=== PATIENT | female | born 1995 | race Caucasian/White ===

== ENCOUNTER 2017-04-14 13:36 | Emergency (ER) | payer MEDICAID ==
[~2017-04-14] VITALS: Ht 157.5 cm; Wt 49.0 kg
[~2017-04-14 13:36] MED LIST: LEVO150T PO
[2017-04-14 14:32] LABS: HEMATOCRIT 40.9 % (34.6-47.8); HEMOGLOBIN 13.7 g/dL (11.7-16.4); WHITE BLOOD COUNT 10.1 x10^3/uL (4.5-13.2)
[2017-04-14 14:43] LABS: BLOOD UREA NITROGEN 3 mg/dL (7-18)
[2017-04-14 15:53] VITALS: BP 123/73
== END 2017-04-14 15:54 | disposition home or self-care (01) ==
LOC: ED 14:03
DX: O20.0 Threatened abortion (principal); O23.11 Infections of bladder in pregnancy, first trimester; O99.281 Endocrine, nutritional and metabolic diseases complicating pregnancy, first trimester; E03.9 Hypothyroidism, unspecified; Z3A.12 12 weeks gestation of pregnancy
CPT/HCPCS: 36415; 76801; 80048; 81001; 82040; 84702; 85025; 86901; 87086; 99285

== ENCOUNTER 2017-05-21 12:34 | Emergency (ER) | payer MEDICAID ==
[~2017-05-21] VITALS: Ht 157.5 cm; Wt 50.1 kg
[2017-05-21 12:40] VITALS: BP 136/85
[2017-05-21] MEDS ORDERED: PNV1TAB.5 PO (13:11)
[2017-05-21 13:27] LABS: MICROSCOPIC NOT IND
[2017-05-21 13:31] LABS: CULTURE INDICATED? NO
== END 2017-05-21 15:05 | disposition left against medical advice (07) ==
LOC: ED 14:27
DX: O26.892 Other specified pregnancy related conditions, second trimester (principal); O99.282 Endocrine, nutritional and metabolic diseases complicating pregnancy, second trimester; Z3A.17 17 weeks gestation of pregnancy; R10.32 Left lower quadrant pain; R10.30 Lower abdominal pain, unspecified; E03.9 Hypothyroidism, unspecified
CPT/HCPCS: 76805; 81003; 99285